=== PATIENT | female | born 1965 | race Two or more races ===

== ENCOUNTER 2017-11-07 21:16 | Emergency (ER) | payer MEDICAID, OTHER ==
[~2017-11-07] VITALS: Ht 165.1 cm; Wt 100.0 kg
[2017-11-07 21:19] VITALS: BP 156/82
[2017-11-07] MEDS ORDERED: BENAZEPRIL (21:25)
[2017-11-07] MEDS ORDERED: METFORMIN (21:25)
[2017-11-07] MEDS ORDERED: GLIPIZIDE (21:25)
[2017-11-07] MEDS ORDERED: CHOLESTEROL MED (21:25)
[2017-11-07] MEDS ORDERED: HCTZ (21:25)
[2017-11-07] MEDS ORDERED: IBUPROFEN 200 MG TABLET PO ONE (21:30)
[2017-11-07] MEDS ORDERED: IBUPROFEN 200 MG TABLET ONE (21:32)
[2017-11-07] MEDS ORDERED: BACITRACIN ZINC OINT 500U/GM, 0.9 GM ONE (22:30)
== END 2017-11-07 23:04 | disposition home or self-care (01) ==
LOC: ED 22:01
DX: S92.535B Nondisplaced fracture of distal phalanx of left lesser toe(s), initial encounter for open fracture (principal); E11.9 Type 2 diabetes mellitus without complications; I10 Essential (primary) hypertension; E78.00 Pure hypercholesterolemia, unspecified; W20.8XXA Other cause of strike by thrown, projected or falling object, initial encounter; Y93.89 Activity, other specified; Y92.89 Other specified places as the place of occurrence of the external cause; Y99.0 Civilian activity done for income or pay
CPT/HCPCS: 99284